=== PATIENT | male | born 1955 | race Caucasian/White ===

== ENCOUNTER 2016-10-19 13:05 | Emergency (ER) | payer OTHER ==
[~2016-10-19] VITALS: Ht 185.4 cm; Wt 93.5 kg
[~2016-10-19 13:05] MED LIST: A-SPAS-S/L0.125 MG PO; ADULT LOW DOSE81 M1 PO; ADVAIR 250/501 DISK IH; ADVAIR HFA120 INHALA IH; ALPRAZOLAM2 MG PO; ANASPAZ0.125 MG PO; ASPIR 8181 M1 PO; ASPIR-LOW81 MG PO; ASPIRIN81 M2 PO; AVELOX400 MG PO; Aspirin E.C. PO; Ativan PO; BACTRIM,SEPT1 TABLET PO; CHLORDIAZEPOXI1 EACH PO; CHLORDIAZEPOXIDE5 MG PO; CIALIS5 MG PO; CIPROFLOXACIN500 M1 PO; CLEOCIN300 MG PO; CLINDAMYCIN HC300 MG PO; CLONAZEPAM2 MG; CLONAZEPAM2 MG PO; COLACE100 MG PO; COMBIVENT AER RES; COMBIVENT RESPIM4 GM IH; COMBIVENT200 INHALA IH; CRESTOR20 MG PO; Combivent IH; DUONEB 2.5-0.5 M3 ML IH; EFFEXOR XR150 MG PO; EFFEXOR XR75 MG PO; ENDOCET 5-3251 EACH PO; Effexor XR PO; FISH OIL 1,0001 EAC7 PO; FISH OIL 1,0001 EACH PO; FISH OIL 1,2001 EAC3 PO; FISH OIL 1,2001 EAC4 PO; FLAGYL500 MG PO; FLEXERIL10 MG PO; FLEXERIL5 MG PO; Fish Oil PO; GEODON40 MG PO; GEODON60 MG PO; HYDROCODON-ACE1 EA11; HYDROCODON-ACE1 EAC7 PO; HYOSCYAMINE0.125 MG PO; Humibid LA,Mucinex PO; KLONOPIN1 M2 PO; KLONOPIN2 MG PO; KlonoPIN PO; LANSOPRAZOLE30 MG PO; LEVAQUIN750 MG PO; LIBRAX, CLI1 CAPSULE PO; Levaquin PO; MELOXICAM7.5 MG PO; METRONIDAZOLE500 MG PO; MOBIC15 MG PO; MUCINEX600 MG PO; Miralax, Glycolax PO; NORCO 5/3251 TABLET PO; OMEGA 3 1,0001 EACH PO; OMEGA 3-6-91200 MG PO; PERCOCET 10/1 TABLET PO; PERCOCET 5/31 TABLET PO; PRAVACHOL40 MG PO; PRAVASTATIN SOD40 MG PO; PREDNISONE20 MG PO; PREDNISONE50 MG PO; PREVACID30 MG PO; PRILOSEC40 MG PO; PROAIR HFA8.5 GM IH; PROVENTIL,2.5 MG/3 M IH; Prevacid PO; QUETIAPINE FUMA50 MG PO; RANITIDINE HCL300 M1 PO; RANITIDINE HCL300 MG; SENNA8.6 M1 PO; SENNA8.6 MG PO; SEPTRA DS TABL1 EACH PO; SEROQUEL50 MG PO; ST. JOSEPH ASPI81 MG PO; TEGRETOL200 MG PO; TEGretol PO; TRAMADOL HCL50 MG PO; TRAZAMINE CONVE50 MG PO; VENLAFAXINE HC150 M1 PO; VENLAFAXINE HC150 MG PO; VENTOLIN HFA18 GM IH; VICODIN 5-3001 EACH PO; VOLTAREN75 MG PO; XANAX XR2 MG PO; XANAX0.5 MG PO; XANAX2 MG PO; ZANTAC300 MG PO; ZIPRASIDONE HCL40 MG PO; ZIPRASIDONE HCL60 MG PO; ZITHROMAX Z-PA250 MG PO; ZOCOR20 MG PO; Zantac PO; Zocor PO; predniSONE PO
[2016-10-19 15:02] LABS: HEMATOCRIT 50.7 % (38.0-50.0); MCH 29.1 PG (29.0-34.0); MCHC 33.3 G/DL (30.0-36.0); MCV 87.4 FL (86-99); MEAN PLAT.VOLUME 10.2 uM^3 (9.0-12.4); PLATELET COUNT 248 K/uL (156-360); RBC DIS.WIDTH-CV 12.1 % (11.8-14.6); RBC DIS.WIDTH-SD 38.7 % (39-53); WHITE BLOOD COUNT 8.4 K/uL (4.1-10.2)
[2016-10-19 15:14] LABS: CHLORIDE 103 mEq/L (99-109); POTASSIUM 4.1 mEq/L (3.7-5.4); SODIUM 139 mEq/L (136-147)
[2016-10-19 15:16] LABS: GLUCOSE 102 mg/dL (70-99)
[2016-10-19 15:17] LABS: ANION GAP 8 MEQ/L (2-14)
[2016-10-19 15:20] LABS: GFR ESTIMATE (CALCULATED) > 59 mL/min/; UREA NITROGEN (BUN) 16 mg/dL (9-23)
[2016-10-19] MEDS ORDERED: PERCOCET 5/31 TABLET PO (17:38)
[2016-10-19] MEDS ORDERED: CLEOCIN300 MG PO (17:38)
[2016-10-19 18:14] VITALS: BP 122/86
== END 2016-10-19 18:16 | disposition home or self-care (01) ==
LOC: EME 13:05
PROVIDERS: Nurse Practitioner Family
DX: T81.4XXA Infection following a procedure, initial encounter (principal); L02.11 Cutaneous abscess of neck; Z98.1 Arthrodesis status; Z98.890 Other specified postprocedural states; R63.4 Abnormal weight loss; R05 Cough; J44.9 Chronic obstructive pulmonary disease, unspecified; J45.909 Unspecified asthma, uncomplicated; Z79.82 Long term (current) use of aspirin; Z68.27 Body mass index [BMI] 27.0-27.9, adult
CPT/HCPCS: 70491; 71020; 80048; 85027; 99281; 99284; J7030

== ENCOUNTER 2016-12-18 02:59 | Emergency (ER) | payer OTHER ==
[~2016-12-18] VITALS: Ht 185.4 cm; Wt 88.3 kg
[2016-12-18 03:00] VITALS: BP 136/91
== END 2016-12-18 06:42 | disposition home or self-care (01) ==
LOC: EME 02:59
DX: S46.911A Strain of unspecified muscle, fascia and tendon at shoulder and upper arm level, right arm, initial encounter (principal); M54.2 Cervicalgia; W01.0XXA Fall on same level from slipping, tripping and stumbling without subsequent striking against object, initial encounter; Z98.1 Arthrodesis status; Z87.891 Personal history of nicotine dependence
CPT/HCPCS: 72125; 73030; 99281; 99284

== ENCOUNTER 2017-09-03 21:48 | Observation (INO) | payer OTHER ==
[~2017-09-03] VITALS: Ht 185.4 cm; Wt 96.3 kg
[2017-09-03 22:28] LABS: HEMATOCRIT 45.4 % (38.0-50.0); HEMOGLOBIN 15.5 G/DL (12.5-16.6); MCH 29.7 PG (29.0-34.0); MCHC 34.1 G/DL (30.0-36.0); PLATELET COUNT 216 K/uL (156-360); RBC DIS.WIDTH-SD 38.6 % (39-53); RED BLOOD COUNT 5.22 M/uL (4.00-5.50); WHITE BLOOD COUNT 9.3 K/uL (4.1-10.2)
[2017-09-03 22:47] LABS: CHLORIDE 106 mEq/L (99-109); SODIUM 142 mEq/L (136-147)
[2017-09-03 22:48] LABS: GLUCOSE 99 mg/dL (70-99)
[2017-09-03 22:50] LABS: TROP-I INTERPRETATION NEGATIVE; TROPONIN-I < 0.01 ng/mL (0.0-0.30)
[2017-09-03 22:52] LABS: GFR ESTIMATE (CALCULATED) > 59 mL/min/ (58.99-99999)
[2017-09-03 22:53] LABS: UREA NITROGEN (BUN) 16 mg/dL (9-23)
[2017-09-04] VITALS (7 sets, daily range): BP systolic 111–167; BP diastolic 63–90
[2017-09-04] MEDS ORDERED: ALPRAZOLAM ER1 MG PO (01:01)
[2017-09-04] MEDS ORDERED: VENLAFAXINE HCL75 M3 PO (01:02)
[2017-09-04] MEDS ORDERED: QUETIAPINE FUMA25 MG PO (01:03)
[2017-09-04] MEDS ORDERED: ALFUZOSIN HCL10 MG PO (01:07)
[2017-09-04 07:24] LABS: TROP-I INTERPRETATION NEGATIVE; TROPONIN-I 0.01 ng/mL (0.0-0.30)
[2017-09-04 11:02] LABS: TROP-I INTERPRETATION NEGATIVE; TROPONIN-I < 0.01 ng/mL (0.0-0.30)
== END 2017-09-04 20:45 | disposition home or self-care (01) ==
LOC: EME 21:48 → EDOF 09-04 02:12 → ENRESERV 09-04 02:13 → 4SOUTH 09-04 02:51
PROVIDERS: Physician Assistant
DX: R07.89 Other chest pain (principal); K11.5 Sialolithiasis; G89.29 Other chronic pain; M54.2 Cervicalgia; J44.9 Chronic obstructive pulmonary disease, unspecified; F43.10 Post-traumatic stress disorder, unspecified; Z79.82 Long term (current) use of aspirin; N40.0 Benign prostatic hyperplasia without lower urinary tract symptoms; Z82.49 Family history of ischemic heart disease and other diseases of the circulatory system; Z87.891 Personal history of nicotine dependence; Z88.0 Allergy status to penicillin; Z88.8 Allergy status to other drugs, medicaments and biological substances
CPT/HCPCS: 70491; 71046; 80048; 84484; 85027; 93005; 99281; 99284; G0378; J1644